=== PATIENT | female | born 1980 | race Caucasian/White ===

== ENCOUNTER 2019-01-02 18:26 | Emergency (ER) | payer SELFPAY ==
[~2019-01-02] VITALS: Ht 160 cm; Wt 88.9 kg
--- NOTE | 2019-01-02 18:31 | ED Back Pain ---
General Stated Complaint: BACK PAIN Source of Information: Patient, Old Records, RN Notes Reviewed Exam Limitations: No Limitations History of Present Illness Date Seen by Provider: Jan 02, 2019 Time Seen by Provider: 18:35 Initial Comments Patient presents c/ c/o an exacerbation of her chronic neck pain x 2 days. Has known disc disease in her cervical spine and reports having epidural injections in the past. States she recently adopted an and thinks she has exacerbated her neck pain placing the child into a car seat and carrying it in a carrier. Location: C-Spine Timing/Duration: 2-3 Days, Constant, Getting Worse Severity: Severe Pain/Injury Location: Neck Radiation: Other (BUE) Method of Injury: Other (see above) Modifying Factors: Worse With Movement Associated Symptoms: denies symptoms Allergies and Home Medications Allergies Coded Allergies: No Known Drug Allergies (Unverified , 01/02/19) Home Medications Cyclobenzaprine HCl 10 Mg Tablet, 10 MG PO TID PRN for NECK SPASM/PAIN Prescribed by: BETH PACE on 01/02/191921 Methylprednisolone 4 Mg Tab.ds.pk, 4 MG PO UD PER DOSE PACK INSTRUCTIONS Prescribed by: BETH PACE on 01/02/191921 Patient Home Medication List Home Medication List Reviewed: Yes Review of Systems Constitutional: see HPI : No Musculoskeletal: see HPI, neck pain Psychiatric/Neurological: See HPI, Other (stressed) All Other Systems Reviewed Negative Unless Noted: Yes (Negative excepted noted.) Past Pxmhpgp-Zhnsyt-Aqsewk Hx Patient Social History Recent Foreign Travel: No Contact w/Someone Who Travel: No Physical Exam Vital Signs Vital Signs - First Documented 01/02/19 18:30 Temp 99.2 Pulse 82 Resp 18 B/P (MAP) 205/101 (135) Pulse Ox 100 O2 Delivery Room Air Capillary Refill : Height, Weight, BMI Height: '" Weight: lbs. oz. kg; BMI Method: General Appearance: WD/WN, Anxious, Mild Distress Neck: Limited Range of Motion, Tender Lateral Cardiovascular: Regular Rate, Rhythm Respiratory: No Respiratory Distress Neurologic/Psychiatric: Alert, No Motor/Sensory Deficits, Depressed Affect (seemed some what stressed ) Skin: Warm/Dry Progress/Results/Core Measures Results/Orders Lab Results Laboratory Tests Test 01/02/19 18:30 Range/Units Urine Color YELLOW Urine Clarity CLOUDY Urine pH 5.5 5-9 Urine Specific [place] >1.030 1.016-1.022 Urine Protein NEGATIVE NEGATIVE Urine Glucose (UA) NEGATIVE NEGATIVE Urine Ketones NEGATIVE NEGATIVE Urine Nitrite NEGATIVE NEGATIVE Urine Bilirubin NEGATIVE NEGATIVE Urine Urobilinogen 0.2 NORMAL MG/DL Urine Leukocyte Esterase NEGATIVE NEGATIVE Urine RBC (Auto) NEGATIVE NEGATIVE Urine RBC NONE /HPF Urine WBC NONE /HPF Urine Squamous Epithelial Cells >50 H /HPF Urine Crystals NONE /LPF Urine Bacteria NONE /HPF Urine Casts NONE /LPF Urine Mucus NEGATIVE /LPF Urine Culture Indicated NO Urine Opiates Screen NEGATIVE NEGATIVE Urine Oxycodone Screen POSITIVE H NEGATIVE Urine Methadone Screen NEGATIVE NEGATIVE Urine Propoxyphene Screen NEGATIVE NEGATIVE Urine Barbiturates Screen NEGATIVE NEGATIVE Ur Tricyclic Antidepressants Screen NEGATIVE NEGATIVE Urine Phencyclidine Screen NEGATIVE NEGATIVE Urine Amphetamines Screen NEGATIVE NEGATIVE Urine Methamphetamines Screen NEGATIVE NEGATIVE Urine Benzodiazepines Screen NEGATIVE NEGATIVE Urine Cocaine Screen NEGATIVE NEGATIVE Urine Cannabinoids Screen NEGATIVE NEGATIVE My Orders Orders - BETH PACE DO Drug Screen Stat (Urine) (01/02/19 18:29) Ua Culture If Indicated (01/02/19 18:29) Dexamethasone Injection (Decadron Inject (01/02/19 19:30) Ketorolac Injection (Toradol Injection) (01/02/19 19:30) Cyclobenzaprine Tablet (Flexeril Tablet) (01/02/19 19:16) Medications Given in ED Current Medications Medications Dose Ordered Sig/Mary Route Start Time Stop Time Status Last Admin Dose Admin Dexamethasone Sodium Phosphate 10 mg ONCE ONCE IM 01/02/19 19:30 01/02/19 19:31 DC 01/02/19 19:28 10 MG Ketorolac Tromethamine 15 mg ONCE ONCE IM 01/02/19 19:30 01/02/19 19:31 DC 01/02/19 19:28 15 MG Vital Signs/I&O 01/02/19 01/02/19 18:30 19:36 Temp 99.2 Pulse 82 66 Resp 18 18 B/P (MAP) 205/101 (135) 153/86 (108) Pulse Ox 100 100 O2 Delivery Room Air Room Air Progress Progress Note : Progress Note Noted that the patient gets monthly refills on Oxycodone. When I asked the patient if she had a pain contract c/ Dr. Tang, she admitted she did. I told her in light of that, I was unable to prescribe her any narcotics. She then stated she just needs something to allow her to get some sleep. Interesting she told the ED RN she was on Hydrocodone and was out of them, but her UDS was (+) for Oxy. Departure Impression Primary Impression: Exacerbation of chronic neck pain Additional Impression: Stress and adjustment reaction Disposition: 01 HOME, SELF-CARE Condition: Stable Departure-Patient Inst. Decision time for Depature: 19:18 Referrals: KIEL TANG MD (PCP) Primary Care Physician Patient Instructions: Generalized Neck Pain (DC) Add. Discharge Instructions: IN ADDITION TO YOUR OXYCODONE, RECOMMEND TAKING 400 mg OF IBUPROFEN &/OR 1000 mg OF TYLENOL EVERY 6 HOURS. DO NOT EXCEED 4000 mg OF TYLENOL IN A 24 HOUR PERIOD. Scripts Cyclobenzaprine HCl (Cyclobenzaprine HCl) 10 Mg Tablet 10 MG PO TID PRN for NECK SPASM/PAIN, #30 TAB 0 Refills Prov: BETH PACE DO 01/02/19 Methylprednisolone (Medrol) 4 Mg Tab.ds.pk 4 MG PO UD for 6 Days, #21 PKG 0 Refills PER DOSE PACK INSTRUCTIONS Prov: BETH PACE DO 01/02/19 BETH PACE DO Jan 02, 2019 18:31
--- OUTSIDE RECORDS SUMMARY | 2019-01-02 18:43 | XMS REPORT | Continuity of Care Document ---
Author Organization Unknown Address Unknown Phone Unavailable Allergies There is no data. Medications There is no data. Problems Date Dx Coded Attending Type Code Diagnosis Diagnosed By 12/16/2012 BETH EGAN MD 705.83 HIDRADENITIS 12/16/2012 BETH EGAN MD 705.83 HIDRADENITIS 12/16/2012 SANNA LUCIA 705.83 HIDRADENITIS 12/23/2012 BETH EGAN MD 527.7 DISTURBANCE OF SALIVARY SECRETION 12/23/2012 BTEH EGAN MD 527.7 DISTURBANCE OF SALIVARY SECRETION 12/23/2012 SANNA LUCIA 527.7 DISTURBANCE OF SALIVARY SECRETION 03/02/2013 BETH EGAN MD 528.5 DISEASES OF LIPS 03/02/2013 EBTH EGAN MD V70.0 ROUTINE GENERAL MEDICAL EXAMINATION AT A HEALTH CARE FACILITY 03/02/2013 BETH EGAN MD 528.5 DISEASES OF LIPS 03/02/2013 BETH EGAN MD V70.0 ROUTINE GENERAL MEDICAL EXAMINATION AT A HEALTH CARE FACILITY 03/02/2013 SANNA LUCIA 528.5 DISEASES OF LIPS 03/02/2013 SANNA LUCIA V70.0 ROUTINE GENERAL MEDICAL EXAMINATION AT A HEALTH CARE FACILITY 06/22/2013 BETH EGAN MD 719.41 PAIN- SHOULDER 06/22/2013 SANNA LUCIA 719.41 PAIN- SHOULDER 07/05/2013 SANNA LUCIA 356.9 UNSPECIFIED IDIOPATHIC PERIPHERAL NEUROPATHY 07/05/2013 SANNA LUCIA 723.1 CERVICALGIA Procedures Code Description [place] [address] CMP (COMPREHENSIVE METABOLIC PANEL) 03/06/2013 77963 LIPID PANEL (OUTSIDE LAB) 03/06/2013 35548 VITAMIN B-12 03/06/2013 45696 VITAMIN D, 1,25-DIHYDROXY 03/06/2013 23707 LH (GONADOTROPIN) 03/06/2013 77371 A1C (GLYCOSALATED HEMOGLOBIN) (OUTSIDE) 03/06/2013 43046 IRON, SERUM 03/06/2013 04918 TSH w/ REFLEX T4 FREE 03/06/2013 90519 CBC, COMPLETE, AUTOMATED WBC W/PLATELETS 03/06/2013 60112 X-RAY SPINE, CERVICAL, COMPLETE 07/05/2013 Results Test Result Range PDM - 09 PANEL (PROFILE 1) - 12/06/18 13:43 Prescribed Drug 1 Percocet(TM) NRG Creatinine 116.5 mg/dL > or=20.0 pH 6.29 4.5 - 9.0 Oxidant NEGATIVE mcg/mL <200 Amphetamines NEGATIVE ng/mL <500 medMATCH Amphetamines CONSISTENT NRG Benzodiazepines POSITIVE ng/mL <100 Marijuana Metabolite NEGATIVE ng/mL <20 medMATCH Marijuana Metab CONSISTENT NRG Cocaine Metabolite NEGATIVE ng/mL <150 medMATCH Cocaine Metab CONSISTENT NRG Opiates NEGATIVE ng/mL <100 medMATCH Opiates CONSISTENT NRG Oxycodone NEGATIVE ng/mL <100 medMATCH Oxycodone INCONSISTENT NRG COMMENT NRG Alphahydroxyalprazolam NEGATIVE ng/mL <25 medMATCH aOH alprazolam CONSISTENT NRG Alphahydroxymidazolam NEGATIVE ng/mL <50 medMATCH aOH midazolam CONSISTENT NRG Alphahydroxytriazolam NEGATIVE ng/mL <50 medMATCH aOH triazolam CONSISTENT NRG Aminoclonazepam NEGATIVE ng/mL <25 medMATCH Aminoclonazepam CONSISTENT NRG Hydroxyethylflurazepam NEGATIVE ng/mL <50 medMATCH OH,Et flurazepam CONSISTENT NRG Lorazepam NEGATIVE ng/mL <50 medMATCH Lorazepam CONSISTENT NRG Nordiazepam NEGATIVE ng/mL <50 medMATCH Nordiazepam CONSISTENT NRG Oxazepam 61 ng/mL <50 medMATCH Oxazepam INCONSISTENT NRG Temazepam NEGATIVE ng/mL <50 medMATCH Temazepam CONSISTENT NRG Prescribed Drug 2 Percocet(TM) NRG Prescribed Drug 3 Percocet(TM) NRG Prescribed Drug 4 Percocet(TM) NRG Prescribed Drug 5 Percocet(TM) NRG Barbiturates NEGATIVE ng/mL <300 medMATCH Barbiturates CONSISTENT NRG Methadone Metabolite NEGATIVE ng/mL <100 medMATCH Methadone Metab CONSISTENT NRG Phencyclidine NEGATIVE ng/mL <25 medMATCH Phencyclidine CONSISTENT NRG Encounters ACCT No. Visit Date/Time Discharge Status Pt. Type Provider Facility Loc./Unit Complaint [id number] 12/27/2018 09:00:00 12/27/2018 23:59:59 CLS Outpatient [facility] [id number] 12/06/2018 09:40:00 Document Registration [id number] 07/05/2013 15:56:00 07/05/2013 23:59:59 CLS Outpatient SANNA LUCIA [id number] 06/22/2013 14:21:00 06/22/2013 23:59:59 [place] [id number] 03/02/2013 10:13:00 03/02/2013 23:59:59 CLS Outpatient BETH EGAN MD
[2019-01-02 18:55] LABS: CLARITY,URINE CLOUDY; COLOR,URINE YELLOW; PH,URINE 5.5 (5-9)
[2019-01-02] MEDS ORDERED: OMEP40CA36 (18:55)
[2019-01-02] MEDS ORDERED: OXYC-465 (18:55)
[2019-01-02] MEDS ORDERED: ONDA4TAB10 (18:55)
[2019-01-02 18:56] LABS: BILIRUBIN,URINE NEGATIVE (NEGATIVE); GLUCOSE, URINE (UA) NEGATIVE (NEGATIVE); KETONES,URINE NEGATIVE (NEGATIVE); LEUKOCYTE ESTERASE ,URINE NEGATIVE (NEGATIVE); NITRITE,URINE NEGATIVE (NEGATIVE); PROTEIN,URINE NEGATIVE (NEGATIVE); SQUAMOUS EPITHELIAL CELL,UR >50 /HPF; UROBILINOGEN,URINE 0.2 MG/DL (NORMAL)
--- NOTE | 2019-01-02 19:00 | NUR ---
Report to Dominga GARNER.
[2019-01-02 19:03] LABS: BENZODIAZEPINES SCREEN URINE NEGATIVE (NEGATIVE)
[2019-01-02 19:04] LABS: AMPHETAMINE SCREEN, URINE NEGATIVE (NEGATIVE); BARBITURATE SCREEN URINE NEGATIVE (NEGATIVE); CANNABINOID SCREEN, URINE NEGATIVE (NEGATIVE); COCAINE SCREEN URINE NEGATIVE (NEGATIVE); METHADONE STAT NEGATIVE (NEGATIVE); METHAMPHETAMINE SCREEN URINE S NEGATIVE (NEGATIVE); OPIATE SCREEN URINE NEGATIVE (NEGATIVE); OXYCODONE STAT POSITIVE (NEGATIVE); PROPOXYPHENE STAT NEGATIVE (NEGATIVE); TRICYCLIC ANTIDEPRESSANTS SCRE NEGATIVE (NEGATIVE)
[2019-01-02] MEDS ORDERED: CYCLOBENZAPRINE 10 MG (FLEXERIL) TAB PO STA (19:16)
[2019-01-02] MEDS ORDERED: METH4TAB PO (19:22)
[2019-01-02] MEDS ORDERED: CYCL10TA9 PO (19:22)
[2019-01-02] MEDS ORDERED: DEXAMETHASONE 10 MG/ML (DECADRON) 1 ML VIAL IM ONE (19:30)
[2019-01-02] MEDS ORDERED: KETOROLAC 30 MG/ML VIAL IM ONE (19:30)
[2019-01-02 19:36] VITALS: BP 153/86
== END 2019-01-02 19:35 | disposition home or self-care (01) ==
LOC: ER FS 18:27
DX: M54.2 Cervicalgia (principal); G89.29 Other chronic pain; F43.9 Reaction to severe stress, unspecified; F43.20 Adjustment disorder, unspecified
CPT/HCPCS: 80306; 81000; 99284